=== PATIENT | male | born 1965 | race Caucasian/White ===

== ENCOUNTER 2017-06-14 07:14 | Emergency (ER) | payer MEDICAID ==
--- NOTE | 2017-06-14 07:29 | EDM.PDOC ---
ED HPI GENERAL MEDICAL PROBLEM - General Stated Complaint: HIGH BLOOD PRESSUE Time Seen by Provider: 06/14/17 07:28 Source of Information: Reports: Patient History Limitations: Reports: No Limitations - History of Present Illness INITIAL COMMENTS - FREE TEXT/NARRATIVE: History of present illness: []Patient is a chronic alcoholic stating that his heart hurts from both sadness and physical pain. He is currently intoxicated and brought in by ambulance awake and alert with slurred speech. Patient states he's been for 6 years and nothing is changed he would like to be sober so that he could live a normal life. Patient was told he has high blood pressure, however, he does not have a primary physician. He admits to drinking alcohol all night with his last drink being around 5 AM before calling the ambulance. He denies being suicidal and does not want to . He is concerned about losing his job because he works at [employer] in [place] and his boss also works here at the hospital. Review of systems: As per history of present illness and below otherwise all systems reviewed and negative. Past medical history: As per history of present illness and as reviewed below otherwise noncontributory. Surgical history: As per history of present illness and as reviewed below otherwise noncontributory. Social history: No reported history of drug or alcohol abuse. Family history: As per history of present illness and as reviewed below otherwise noncontributory. Physical exam: General: Well developed, well nourished in NAD HEENT: Atraumatic, normocephalic, pupils reactive, negative for conjunctival pallor or scleral icterus, mucous membranes moist, throat clear, neck supple, nontender, trachea midline. Lungs: Clear to auscultation, breath sounds equal bilaterally, chest nontender. Heart: S1S2, regular, negative for clicks, rubs, or JVD. Abdomen: Soft, nondistended, nontender. Negative for masses or hepatosplenomegaly. Negative for costovertebral tenderness. Pelvis: Stable nontender. Genitourinary: Deferred. Rectal: Deferred. Extremities: Atraumatic, negative for cords or calf pain. Neurovascular unremarkable. Neuro: Awake, alert, oriented. Cranial nerves II through XII unremarkable. Cerebellum unremarkable. Motor and sensory unremarkable throughout. Exam nonfocal. Diagnostics: [] Therapeutics: [] Impression: [] Plan: [] Definitive disposition and diagnosis as appropriate pending reevaluation and review of above. - Related Data Allergies Allergy/AdvReac Type Severity Reaction Status Date / Time Sulfa (Sulfonamide Allergy Other Verified 06/14/17 07:27 Antibiotics) Home Meds: Home Meds Levothyroxine [Synthroid] 50 mcg PO ACBREAKFAST 06/14/17 [History] Propranolol [Inderal] 10 mg PO BID 06/14/17 [History] ED ROS GENERAL - Review of Systems Review Of Systems: See Below (See history of present illness) ED EXAM, GENERAL - Physical Exam Exam: See Below (See history of present illness) Course - Vital Signs Last Recorded V/S: Last Vital Signs Temp 36.5 C 06/14/17 08:34 Pulse 84 06/14/17 07:32 Resp 20 06/14/17 08:34 BP 141/75 H 06/14/17 08:34 Pulse Ox 94 L 06/14/17 08:34 - Orders/Labs/Meds Orders: Active Orders 24 hr Category Date Time Status EKG Documentation Completion [RC] STAT Care 06/14/17 07:29 Active Labs: Laboratory Tests 06/14/17 06/14/17 06/14/17 Range/Units 07:43 07:43 07:52 WBC 8.72 (4.0-11.0) K/uL RBC 4.65 (4.50-5.90) M/uL Hgb 15.4 (13.0-17.0) g/dL Hct 43.9 (38.0-50.0) % MCV 94.4 (80.0-98.0) fL MCH 33.1 H (27.0-32.0) pg MCHC 35.1 (31.0-37.0) g/dL RDW Std Deviation 46.4 (28.0-62.0) fl RDW Coeff of Miah 14 (11.0-15.0) % Plt Count 354 (150-400) K/uL MPV 9.60 (7.40-12.00) fL Neut % (Auto) 44.0 L (48.0-80.0) % Lymph % (Auto) 41.4 H (16.0-40.0) % [place] % (Auto) 10.4 (0.0-15.0) % Eos % (Auto) 2.8 (0.0-7.0) % Baso % (Auto) 1.4 (0.0-1.5) % Neut # (Auto) 3.8 (1.4-5.7) K/uL Lymph # (Auto) 3.6 H (0.6-2.4) K/uL [place] # (Auto) 0.9 H (0.0-0.8) K/uL Eos # (Auto) 0.2 (0.0-0.7) K/uL Baso # (Auto) 0.1 (0.0-0.1) K/uL Nucleated RBC % 0.0 /100WBC Nucleated RBCs # 0 K/uL Sodium 139 (136-146) mmol/L Potassium 4.3 (3.5-5.1) mmol/L Chloride 108 (98-110) mmol/L Carbon Dioxide 21 (21-31) mmol/L BUN 10 (6.0-23.0) mg/dL Creatinine 0.8 (0.6-1.5) mg/dL Est Cr Clr Drug Dosing TNP Estimated GFR (MDRD) > 60.0 ml/min Glucose 98 (60-110) mg/dL Calcium 8.4 L (8.8-10.8) mg/dL Total Bilirubin 0.3 (0.1-1.5) mg/dL AST 35 (5-40) IU/L ALT 36 (8-54) IU/L Alkaline Phosphatase 75 (40-150) Troponin I < 0.10 (0.0-0.29) NG/ML Total Protein 7.7 (6.0-8.0) g/dL Albumin 4.4 (3.5-5.0) g/dL Globulin 3.3 (2.0-3.5) g/dL Albumin/Globulin Ratio 1.3 (1.3-2.8) Urine Opiates Screen NEGATIVE (NEGATIVE) Ur Oxycodone Screen NEGATIVE (NEGATIVE) Urine Methadone Screen NEGATIVE (NEGATIVE) Ur Barbiturates Screen NEGATIVE (NEGATIVE) Ur Phencyclidine Scrn NEGATIVE (NEGATIVE) Ur Amphetamine Screen NEGATIVE (NEGATIVE) U Methamphetamines Scrn NEGATIVE (NEGATIVE) U Benzodiazepines Scrn NEGATIVE (NEGATIVE) U Cocaine Metab Screen NEGATIVE (NEGATIVE) U Marijuana (THC) Screen NEGATIVE (NEGATIVE) Ethyl Alcohol 293.1 mg/dL Meds: Medications Discontinued Medications Generic Name Dose Route Start Last Admin Trade Name Celeste PRN Reason Stop Dose Admin Sodium Chloride 1,000 mls @ 999 mls/hr 06/14/17 07:33 06/14/17 07:50 Normal Saline IV 06/14/17 08:33 Not Given .Bolus ONE Departure - Departure Time of Disposition: 08:50 Disposition: Home, Self-Care 01 Condition: Fair Clinical Impression: Chronic alcoholic intoxication Qualifiers: Complication of substance-induced condition: uncomplicated Qualified Code(s): F10.120 - Alcohol abuse with intoxication, uncomplicated - Discharge Information Referrals: PCP,None [Primary Care Provider] - Additional Instructions: The following information is given to patients seen in the emergency department who are being discharged to home. This information is to outline your options for follow-up care. We provide all patients seen in our emergency department with a follow-up referral. The need for follow-up, as well as the timing and circumstances, are variable depending upon the specifics of your emergency department visit. If you don't have a primary care physician on staff, we will provide you with a referral. We always advise you to contact your personal physician following an emergency department visit to inform them of the circumstance of the visit and for follow-up with them and/or the need for any referrals to a consulting specialist. The emergency department will also refer you to a specialist when appropriate. This referral assures that you have the opportunity for follow-up care with a specialist. All of these measure are taken in an effort to provide you with optimal care, which includes your follow-up. Under all circumstances we always encourage you to contact your private physician who remains a resource for coordinating your care. When calling for follow-up care, please make the office aware that this follow-up is from your recent emergency room visit. If for any reason you are refused follow-up, please contact the [facility] Emergency Department at and asked to speak to the emergency department charge nurse. Follow up with a primary care physician [facility] [address] [place] [id number] - My Orders Last 24 Hours: My Active Orders 06/14/17 07:29 EKG Documentation Completion [RC] STAT - Assessment/Plan Last 24 Hours: My Active Orders 06/14/17 07:29 EKG Documentation Completion [RC] STAT
[2017-06-14] MEDS ORDERED: Sodium Chloride 0.9% 1,000 ML IV ONE (07:33)
[2017-06-14 08:18] LABS: CHLORIDE,CL 108 mmol/L (98-110); SODIUM,NA 139 mmol/L (136-146)
== END 2017-06-14 09:11 | disposition home or self-care (01) ==
LOC: EDBD 07:14 → MW.ED 07:14
DX: F10.120 Alcohol abuse with intoxication, uncomplicated (principal); Z88.2 Allergy status to sulfonamides
CPT/HCPCS: 36415; 80053; 80305; 84484; 85025; 93005; 99284; G0480; 99282

== ENCOUNTER 2017-07-09 16:29 | Emergency (ER) | payer MEDICAID ==
[2017-07-09] MEDS ORDERED: Sodium Chloride 0.9% 10 ML Syringe FLUSH PRN (16:54)
[2017-07-09] MEDS ORDERED: Sodium Chloride 0.9% 2.5 ML Syringe FLUSH PRN (16:54)
[2017-07-09] MEDS ORDERED: Sodium Chloride 0.9% 1,000 ML IV ONE (17:11)
[2017-07-09] MEDS ORDERED: Thiamine 200 MG/2 ML MDV IM ONE (17:11)
--- NOTE | 2017-07-09 17:57 | EDM.PDOCBH ---
ED HPI GENERAL MEDICAL PROBLEM - General Chief Complaint: Drug or Alcohol Abuse Stated Complaint: UNK Time Seen by Provider: 07/09/17 16:52 Source of Information: Reports: Patient History Limitations: Reports: No Limitations, Intoxication. Denies: Combative/ Threatening - History of Present Illness INITIAL COMMENTS - FREE TEXT/NARRATIVE: HISTORY AND PHYSICAL: []52-year-old male presenting with alcohol intoxication and wishing to have detox and to seek a call treatment History of Present Illness: []Patient has history of chronic alcoholism he has been in treatment once before he's been trying to stop drinking on his own and this has not worked out very well Patient states he drinks the large cans 1 "pounders" 18 a day. Occasionally he drinks some "whiskey fireball" Review of Systems: As per history of present illness and below otherwise all systems reviewed and negative. Past medical history: As per history of present illness and as reviewed below otherwise noncontributory. Surgical history: As per history of present illness and as reviewed below otherwise noncontributory. Social history: No reported history of drug or alcohol abuse. Family history: As per history of present illness and as reviewed below otherwise noncontributory. Physical exam: Alert pleasant gentleman answers questions appropriately speaks in full sentences without any shortness of breath strong alcohol odor present. HEENT: Atraumatic, normocehpalic, pupils reactive, negative for conjunctival pallor or scleral icterus, mucous membranes moist, throat clear, neck supple, nontender, trachea midline. Lungs: Clear to auscultation, breath sounds equal bilaterally, chest non tender. Heart: S1S2, regular, negative for clicks, rubs, or JVD. Tachycardia at 130s/ EKG shows sinus tachycardia 132 Abdomen: Soft, nondistended, nontender. Negative for masses or hepatossplenmegaly. Negative for costovertebral tenderness. Pelvis: Stable nontender. Genitourinary: Deferred. Rectal: Deferred Extremities: Atraumatic, negative for cords or calf pain. Neurovascular unremarkable. Neuro: Awake, alert, oriented. Cranial nerves II through XII unremarkable. Cerebellum unremarkable. Motor and sensory unremarkable throughout. Exam nonfocal. Diagnostics: [CBC CMP amylase lipase urine urine drug screen EKG magnesium troponin] Therapeutics: [Normal saline thiamine IM] Impression: []Alcohol intoxication wishing for detox and alcohol treatment Plan: []Discussed case with Dr. Barraza, psychiatrist and then Dr. Sinclair in the emergency room. He was accepted the patient for treatment. Transfer forms have been completed Definitive disposition and diagnosis as appropriate pending reevaluation and review of above. Onset: Gradual Duration: Chronic Location: Reports: Generalized Quality: Reports: Same as Previous Episode Improves with: Reports: None Worsens with: Reports: None - Related Data Allergies Allergy/AdvReac Type Severity Reaction Status Date / Time Sulfa (Sulfonamide Allergy Other Verified 07/09/17 16:49 Antibiotics) Home Meds: Home Meds Levothyroxine [Synthroid] 50 mcg PO ACBREAKFAST 06/14/17 [History] Propranolol [Inderal] 10 mg PO BID 06/14/17 [History] Past Medical History Cardiovascular History: Reports: Hypertension Social & Family History - Family History Family Medical History: Noncontributory - Tobacco Use Smoking Status *Q: Current Every Day Smoker Years of Tobacco use: 35 Packs/Tins Daily: 2 - Caffeine Use Caffeine Use: Reports: None - Alcohol Use Days Per Week of Alcohol Use: 7 Number of Drinks Per Day: 20 Total Drinks Per Week: 140 - Recreational Drug Use Recreational Drug Use: No ED ROS GENERAL - Review of Systems Review Of Systems: ROS reveals no pertinent complaints other than HPI. ED EXAM, BEHAVIORAL HEALTH - Physical Exam Exam: See Below (See dictation) COURSE, BEHAVIORAL HEALTH COMP - Course Vital Signs: Last Vital Signs Temp 36.0 C 07/09/17 16:45 Pulse 132 H 07/09/17 16:45 Resp 20 07/09/17 16:45 BP 135/109 H 07/09/17 16:45 Pulse Ox 96 07/09/17 16:45 Orders, Labs, Meds: Active Orders 24 hr Category Date Time Status EKG Documentation Completion [RC] STAT Care 07/09/17 16:54 Active EKG Documentation Completion [RC] STAT Care 07/09/17 17:49 Active ACETAMINOPHEN [CHEM] Stat Lab 07/09/17 17:49 Ordered COMPREHENSIVE METABOLIC PN,CMP [CHEM] Stat Lab 07/09/17 17:19 Received DRUG SCREEN, URINE [URCHEM] Stat Lab 07/09/17 17:31 Received ETOH [ETHANOL BLOOD MEDICAL] [CHEM] Stat Lab 07/09/17 17:19 Received FREE T3 [REF] Stat Lab 07/09/17 17:49 Ordered INR,PT,PROTHROMBIN TIME [COAG] Stat Lab 07/09/17 17:19 Received MAGNESIUM [CHEM] Stat Lab 07/09/17 17:19 Received SALICYLATE [CHEM] Stat Lab 07/09/17 17:49 Ordered TROPONIN I [CHEM] Stat Lab 07/09/17 17:19 Received TSH [CHEM] Stat Lab 07/09/17 17:49 Ordered UA W/MICROSCOPIC [URIN] Stat Lab 07/09/17 17:31 Received Sodium Chloride 0.9% [Normal Saline] 1,000 ml Med 07/09/17 17:11 Active IV STAT Sodium Chloride 0.9% [Saline Flush] Med 07/09/17 16:54 Active 10 ml FLUSH ASDIRECTED PRN Sodium Chloride 0.9% [Saline Flush] Med 07/09/17 16:54 Active 2.5 ml FLUSH ASDIRECTED PRN Saline Lock Insert [OM.PC] Stat Oth 07/09/17 16:54 Ordered Medication Orders Sodium Chloride (Normal Saline) 1,000 mls @ 999 mls/hr IV STAT ONE Stop: 07/09/17 18:11 Last Admin: 07/09/17 17:26 Dose: 999 mls/hr Sodium Chloride (Saline Flush) 10 ml FLUSH ASDIRECTED PRN PRN Reason: Keep Vein Open Sodium Chloride (Saline Flush) 2.5 ml FLUSH ASDIRECTED PRN PRN Reason: Keep Vein Open Laboratory Tests 07/09/17 Range/Units 17:19 WBC 9.90 (4.0-11.0) K/uL RBC 4.56 (4.50-5.90) M/uL Hgb 15.4 (13.0-17.0) g/dL Hct 42.8 (38.0-50.0) % MCV 93.9 (80.0-98.0) fL MCH 33.8 H (27.0-32.0) pg MCHC 36.0 (31.0-37.0) g/dL RDW Std Deviation 46.9 (28.0-62.0) fl RDW Coeff of Miah 14 (11.0-15.0) % Plt Count 269 (150-400) K/uL MPV 9.70 (7.40-12.00) fL Neut % (Auto) 69.0 (48.0-80.0) % Lymph % (Auto) 19.6 (16.0-40.0) % [place] % (Auto) 10.5 (0.0-15.0) % Eos % (Auto) 0.5 (0.0-7.0) % Baso % (Auto) 0.4 (0.0-1.5) % Neut # (Auto) 6.8 H (1.4-5.7) K/uL Lymph # (Auto) 1.9 (0.6-2.4) K/uL [place] # (Auto) 1.0 H (0.0-0.8) K/uL Eos # (Auto) 0.1 (0.0-0.7) K/uL Baso # (Auto) 0.0 (0.0-0.1) K/uL Nucleated RBC % 0.0 /100WBC Nucleated RBCs # 0 K/uL Medications Generic Name Dose Route Start Last Admin Trade Name Freq PRN Reason Stop Dose Admin Sodium Chloride 1,000 mls @ 999 mls/hr 07/09/17 17:11 07/09/17 17:26 Normal Saline IV 07/09/17 18:11 999 mls/hr STAT ONE Administration Sodium Chloride 10 ml 07/09/17 16:54 Saline Flush FLUSH ASDIRECTED PRN Keep Vein Open Sodium Chloride 2.5 ml 07/09/17 16:54 Saline Flush FLUSH ASDIRECTED PRN Keep Vein Open Discontinued Medications Generic Name Dose Route Start Last Admin Trade Name Freq PRN Reason Stop Dose Admin Thiamine HCl 100 mg 07/09/17 17:11 07/09/17 17:26 Vitamin B-1 IM 07/09/17 17:12 100 mg ONETIME ONE Administration Departure - Departure Time of Disposition: 17:57 Disposition: DC/Tfer to Acute Hospital 02 Condition: Good Clinical Impression: Alcohol abuse - Discharge Information Referrals: PCP,None [Primary Care Provider] - - My Orders Last 24 Hours: My Active Orders 07/09/17 16:54 EKG Documentation Completion [RC] STAT Sodium Chloride 0.9% [Saline Flush] 10 ml FLUSH ASDIRECTED PRN Sodium Chloride 0.9% [Saline Flush] 2.5 ml FLUSH ASDIRECTED PRN Saline Lock Insert [OM.PC] Stat 12/23/17 17:11 Sodium Chloride 0.9% [Normal Saline] 1,000 ml IV STAT 07/09/17 17:19 COMPREHENSIVE METABOLIC PN,CMP [CHEM] Stat ETOH [ETHANOL BLOOD MEDICAL] [CHEM] Stat INR,PT,PROTHROMBIN TIME [COAG] Stat MAGNESIUM [CHEM] Stat TROPONIN I [CHEM] Stat 07/09/17 17:31 DRUG SCREEN, URINE [URCHEM] Stat UA W/MICROSCOPIC [URIN] Stat 07/09/17 17:49 EKG Documentation Completion [RC] STAT ACETAMINOPHEN [CHEM] Stat FREE T3 [REF] Stat SALICYLATE [CHEM] Stat TSH [CHEM] Stat - Assessment/Plan Last 24 Hours: My Active Orders 07/09/17 16:54 EKG Documentation Completion [RC] STAT Sodium Chloride 0.9% [Saline Flush] 10 ml FLUSH ASDIRECTED PRN Sodium Chloride 0.9% [Saline Flush] 2.5 ml FLUSH ASDIRECTED PRN Saline Lock Insert [OM.PC] Stat 07/09/17 17:11 Sodium Chloride 0.9% [Normal Saline] 1,000 ml IV STAT 07/09/17 17:19 COMPREHENSIVE METABOLIC PN,CMP [CHEM] Stat ETOH [ETHANOL BLOOD MEDICAL] [CHEM] Stat INR,PT,PROTHROMBIN TIME [COAG] Stat MAGNESIUM [CHEM] Stat TROPONIN I [CHEM] Stat 07/09/17 17:31 DRUG SCREEN, URINE [URCHEM] Stat UA W/MICROSCOPIC [URIN] Stat 07/09/17 17:49 EKG Documentation Completion [RC] STAT ACETAMINOPHEN [CHEM] Stat FREE T3 [REF] Stat SALICYLATE [CHEM] Stat TSH [CHEM] Stat
[2017-07-09 18:04] LABS: CHLORIDE,CL 105 mmol/L (98-110); SODIUM,NA 138 mmol/L (136-146)
[2017-07-09 18:19] LABS: ACETAMINOPHEN < 3.0 ug/mL
== END 2017-07-09 18:10 ==
LOC: MW.ED 16:29
DX: F10.120 Alcohol abuse with intoxication, uncomplicated (principal); F17.210 Nicotine dependence, cigarettes, uncomplicated; Z88.2 Allergy status to sulfonamides
CPT/HCPCS: 36415; 80053; 80305; 81001; 83735; 84443; 84484; 85025; 85610; 93005; 96360; 96372; 99285; G0480; J3411; J7040; 84481; 99284